=== PATIENT | female | born 1985 | race American Indian/Alaskan Native ===

== ENCOUNTER 2017-01-06 11:54 | Emergency (ER) | payer OTHER ==
[2017-01-06 12:12] VITALS: BP 123/75; PULSE 57; RESP 18; TEMP 98.1; O2SAT 99
--- NOTE | 2017-01-06 12:45 | C.PDOC ---
History Of Present Illness 31 yr old female presents to the ER with complaints of [id number] left lower quadrant pain. Patient states she has been taking percocet for her dental pain, was evaluated at [facility] [place] on January 02. Patient states the dental pain has improved. Denies fever, nausea, vomiting, diarrhea, dysuria, weakness or numbness. Time Seen by Provider: 01/06/17 12:38 Chief Complaint (Nursing): Abdominal Pain History Per: Patient History/Exam Limitations: no limitations Onset/Duration Of Symptoms: Days Current Symptoms Are (Timing): Still Present Location Of Pain/Discomfort: LLQ Past Medical History Reviewed: Historical Data, Nursing Documentation, Vital Signs Vital Signs: Last Vital Signs Temp 98.1 F 01/06/17 12:05 Pulse 57 L 01/06/17 12:05 Resp 18 01/06/17 12:05 BP 123/75 01/06/17 12:05 Pulse Ox 99 01/06/17 13:36 - Medical History PMH: Asthma Family History: States: No Known Family Hx - Social History Hx Alcohol Use: No Hx Substance Use: No - Immunization History Hx Tetanus Toxoid Vaccination: No Hx Influenza Vaccination: No Hx Pneumococcal Vaccination: No Review Of Systems Except As Marked, All Systems Reviewed And Found Negative. Constitutional: Negative for: Fever Gastrointestinal: Positive for: Abdominal Pain (LLQ). Negative for: Nausea, Vomiting, Diarrhea Genitourinary: Negative for: Dysuria Neurological: Negative for: Weakness, Numbness Physical Exam - Physical Exam Appears: Non-toxic, No Acute Distress, Other ((+) Morbidly obese ) Skin: Warm, Dry, No Rash Head: Atraumatic, Normacephalic Chest: Symmetrical, No Tenderness Cardiovascular: Rhythm Regular, No Murmur Respiratory: Normal Breath Sounds, No Rales, No Rhonchi, No Stridor, No Wheezing Gastrointestinal/Abdominal: Soft, No Guarding, No Rebound, Other ((+) Tympanic in epigastric. D) Extremity: Normal ROM, No Swelling Neurological/Psych: Oriented x3, Normal Speech, Normal Motor ED Course And Treatment - Laboratory Results Result Diagrams: 01/06/17 12:53 01/06/17 12:53 Lab Interpretation: Normal (ua neg.) Urine POC: Negative O2 Sat by Pulse Oximetry: 99 (RA ) Pulse Ox Interpretation: Normal - Other Rad X-Ray - Obstructive Series X-Ray: Interpreted by Me, Viewed By Me Interpretation: +FOS Reevaluation Time: 13:35 Reassessment Condition: Improved Medical Decision Making Medical Decision Making: PLAN: * X-Ray - Obstructive Series * Drug Screen * CBC * CMP * HCG * Urinalysis * Toradol IVP 1330: constipation, prob partially related to recent percocet use. Disposition Doctor Will See Patient In The: Office Counseled Patient/Family Regarding: Studies Performed, Diagnosis - Disposition Disposition: HOME/ ROUTINE Disposition Time: 13:36 Condition: GOOD - Clinical Impression Clinical Impression: Colicky LLQ abdominal pain - Scribe Statement The provider has reviewed the documentation as recorded by the Madelyn Redding Provider Attestation: All medical record entries made by the Madelyn were at my direction and personally dictated by me. I have reviewed the chart and agree that the record accurately reflects my personal performance of the history, physical exam, medical decision making, and the department course for this patient. I have also personally directed, reviewed, and agree with the discharge instructions and disposition.
[2017-01-06 13:01] LABS: BASO # 0.1 K/uL (0.0-0.2); BASO % 1.2 % (0.0-2.0); EOS # 0.1 K/uL (0.0-0.7); HEMOGLOBIN 9.6 g/dL (11.0-16.0); LYMPH # 1.5 K/uL (1.0-4.3); LYMPH % 37.3 % (20.0-40.0); MEAN CELL VOLUME 79.1 fL (81.0-99.0); MEAN CORPUSCULAR HGB CONC 31.5 g/dL (33.0-37.0); MEAN PLATELET VOLUME 7.9 fL (7.2-11.7); MONO # 0.5 K/uL (0.0-0.8); MONO % 11.9 % (0.0-10.0); NEUT # 1.9 K/uL (1.8-7.0); NEUT % 46.6 % (50.0-75.0); RBC 3.84 Mil/uL (3.80-5.20); RED CELL DISTRIBUTION WIDTH 15.6 % (11.5-14.5); WHITE BLOOD COUNT 4.1 K/uL (4.8-10.8)
[2017-01-06 13:04] LABS: HCG,QUALITATIVE URINE NEGATIVE (NEGATIVE)
[2017-01-06 13:09] LABS: ALBUMIN 3.6 g/dL (3.5-5.0)
[2017-01-06 13:10] LABS: SQUAMOUS EPITHIAL 3 /hpf (0-5); URINE BILIRUBIN NEGATIVE (NEGATIVE); URINE BLOOD 1+ (NEGATIVE); URINE CLARITY Hazy (Clear); URINE COLOR Yellow (YELLOW); URINE GLUCOSE (UA) NORMAL (Normal); URINE LEUKOCYTE ESTERASE NEG Leu/uL (Negative); URINE NITRATE NEGATIVE (NEGATIVE); URINE PROTEIN NEGATIVE (NEGATIVE); URINE UROBILINOGEN NORMAL mg/dL (0.2-1.0)
[2017-01-06 13:11] LABS: GFR AFRICAN-AMERICAN > 60; GFR NON-AFRICAN AMERICAN > 60
[2017-01-06 13:12] LABS: ALT/SGPT 15 U/L (9-52); AST/SGOT 29 U/L (14-36); BLOOD UREA NITROGEN 8 mg/dL (7-17); CALCIUM 8.6 mg/dl (8.6-10.4); LIPASE 55 U/L (23-300)
[2017-01-06 13:18] LABS: BENZODIAZEPINES, UR NEGATIVE (NEGATIVE)
[2017-01-06 13:20] LABS: BARBITURATES, UR NEGATIVE (NEGATIVE)
[2017-01-06 13:22] LABS: OPIATES, UR NEGATIVE (NEGATIVE)
[2017-01-06 13:23] LABS: PHENCYCLIDINE, UR NEGATIVE (NEGATIVE)
--- NOTE | 2017-01-06 13:39 | RAD ---
PROCEDURE: Radiographs of the chest and abdomen (obstructive series) HISTORY: abd pain COMPARISON: No prior. TECHNIQUE: AP radiograph of the chest, with upright and supine radiographs of the abdomen. FINDINGS: CHEST: Heart size normal. Mild atelectasis seen in the mid to lower lung edward left greater than right. Lung edward otherwise clear without focal consolidation or effusion ABDOMEN AND PELVIS: No gross free intraperitoneal air. Moderate 2 large amount of stool seen throughout the colon consistent with constipation No abnormal calcifications. Visualized osseous structures appear grossly unremarkable IMPRESSION: Mild atelectasis both mid to lower lung edward left greater than right. Findings consistent with constipation.
== END 2017-01-06 14:01 | disposition home or self-care (01) ==
LOC: C.ER 11:54
DX: R10.32 Left lower quadrant pain (principal)

== ENCOUNTER 2017-09-01 12:59 | Emergency (ER) | payer OTHER ==
[2017-09-01 13:14] VITALS: RESP 20; O2SAT 100
[2017-09-01 14:53] LABS: BASO # 0.1 K/uL (0.0-0.2); BASO % 0.9 % (0.0-2.0); EOS # 0.1 K/uL (0.0-0.7); EOS % 1.7 % (0.0-4.0); HEMOGLOBIN 11.5 g/dL (11.0-16.0); LYMPH % 32.3 % (20.0-40.0); MEAN CELL VOLUME 84.8 fL (81.0-99.0); MEAN CORPUSCULAR HEMOGLOBIN 27.9 pg (27.0-31.0); MEAN CORPUSCULAR HGB CONC 32.9 g/dL (33.0-37.0); MEAN PLATELET VOLUME 8.8 fL (7.2-11.7); MONO # 0.5 K/uL (0.0-0.8); MONO % 8.5 % (0.0-10.0); NEUT # 3.5 K/uL (1.8-7.0); NEUT % 56.6 % (50.0-75.0); NRBC % 0.1 % (0.0-2.0); RBC 4.12 Mil/uL (3.80-5.20); WHITE BLOOD COUNT 6.2 K/uL (4.8-10.8)
[2017-09-01 14:57] LABS: HCG,QUALITATIVE URINE NEGATIVE (NEGATIVE); SQUAMOUS EPITHIAL 9 /hpf (0-5); URINE BILIRUBIN NEGATIVE (NEGATIVE); URINE BLOOD 1+ (NEGATIVE); URINE CLARITY Hazy (Clear); URINE COLOR Yellow (YELLOW); URINE GLUCOSE (UA) NORMAL (Normal); URINE LEUKOCYTE ESTERASE NEG Leu/uL (Negative); URINE NITRATE NEGATIVE (NEGATIVE); URINE PROTEIN NEGATIVE (NEGATIVE); URINE UROBILINOGEN NORMAL mg/dL (0.2-1.0)
[2017-09-01 15:04] LABS: ALB/GLOB RATIO 1.1 (1.0-2.1); ALT/SGPT 30 U/L (9-52); AST/SGOT 36 U/L (14-36); BLOOD UREA NITROGEN 5 mg/dL (7-17); CALCIUM 9.2 mg/dl (8.6-10.4); GFR AFRICAN-AMERICAN > 60; GFR NON-AFRICAN AMERICAN > 60; LIPASE 67 U/L (23-300)
--- NOTE | 2017-09-01 15:21 | C.PDOC ---
Time Seen by Provider: 09/01/17 14:02 Chief Complaint (Nursing): Abdominal Pain History Per: Patient Onset/Duration Of Symptoms: Days (3) Current Symptoms Are (Timing): Still Present Severity: Moderate Location Of Pain/Discomfort: Epigastric Quality Of Discomfort: Unable To Describe Associated Symptoms: Diarrhea Alleviating Factors: OTC Meds (Pepto-bismol) Last Bowel Movement: Today Additional History Per: Prior Records Abnormal Vaginal Bleeding: Yes Past Medical History Reviewed: Historical Data, Nursing Documentation, Vital Signs Vital Signs: Last Vital Signs Temp 98 F 09/01/17 13:11 Pulse 65 09/01/17 13:11 Resp 20 09/01/17 13:11 BP 136/82 09/01/17 13:11 Pulse Ox 100 09/01/17 13:11 - Medical History PMH: Asthma Surgical History: Family History: States: Unknown Family Hx - Social History Hx Alcohol Use: No Hx Substance Use: No - Immunization History Hx Tetanus Toxoid Vaccination: No Hx Influenza Vaccination: No Hx Pneumococcal Vaccination: No Review Of Systems Except As Marked, All Systems Reviewed And Found Negative. Constitutional: Negative for: Fever Cardiovascular: Negative for: Chest Pain, Light Headedness Respiratory: Negative for: Shortness of Breath Gastrointestinal: Positive for: Abdominal Pain, Diarrhea, Melena (?, but after taking Pepto-bismol). Negative for: Vomiting Genitourinary: Positive for: Vaginal Bleeding (resolved). Negative for: Dysuria Musculoskeletal: Negative for: Neck Pain, Back Pain Skin: Negative for: Rash Neurological: Negative for: Weakness, Numbness Physical Exam - Physical Exam Appears: Non-toxic, No Acute Distress Skin: Normal Color, Warm, Dry, No Rash Head: Atraumatic, Normacephalic Eye(s): bilateral: Normal Inspection, PERRL, EOMI Neck: Normal ROM, Supple Cardiovascular: Rhythm Regular Respiratory: Normal Breath Sounds, No Accessory Muscle Use Gastrointestinal/Abdominal: Soft, No Tenderness Back: No CVA Tenderness Extremity: Normal ROM Neurological/Psych: Oriented x3, Normal Motor, Normal Sensation ED Course And Treatment - Laboratory Results Result Diagrams: 09/01/17 14:46 09/01/17 14:46 Lab Interpretation: No Acute Changes Urine POC: Negative O2 Sat by Pulse Oximetry: 100 Pulse Ox Interpretation: Normal Reassessment Condition: Improved Disposition Counseled Patient/Family Regarding: Studies Performed, Diagnosis, Need For Followup, Rx Given - Disposition Referrals: Oumar Cage MD [Staff Provider] - Disposition: HOME/ ROUTINE Disposition Time: 15:24 Condition: IMPROVED Additional Instructions: Follow up with a GI doctor and you [facility] for further evaluation and treatment. Return to the ER if you develop fever, vomiting, dizziness, worsening of symptoms or if you have any other concerns. Prescriptions: Pantoprazole Sodium [Protonix] 40 mg PO DAILY #14 ect Instructions: Viral Gastroenteritis, Adult (DC) - Clinical Impression Clinical Impression: Abdominal pain, Diarrhea, Vaginal bleeding, abnormal
[2017-09-01 16:02] VITALS: BP 115/74; PULSE 73; TEMP 97.4
== END 2017-09-01 15:54 | disposition home or self-care (01) ==
LOC: C.ER 12:59
DX: N93.9 Abnormal uterine and vaginal bleeding, unspecified (principal); R19.7 Diarrhea, unspecified; R10.9 Unspecified abdominal pain